=== PATIENT | male | born 1980 | race Caucasian/White ===

== ENCOUNTER 2021-01-21 20:57 | Emergency (ER) | payer OTHER ==
[2021-01-21] MEDS ORDERED: Ketorolac 15 MG/ML SDV IM ONE (21:29)
--- NOTE | 2021-01-21 22:17 | EDM.PDOC ---
ED [facility] GENERAL MEDICAL PROBLEM - General Chief Complaint: Abdominal Pain Stated Complaint: STOMACH PAIN Time Seen by Provider: 01/21/21 21:40 Source of Information: Reports: Patient History Limitations: Reports: No Limitations - History of Present Illness INITIAL COMMENTS - FREE TEXT/NARRATIVE: Patient is a 40-year-old male with no significant past medical history presenting with a chief complaint of abdominal pain. Patient reports that abdominal pain started about 3 hours ago. Patient reports the pain is in the left lower quadrant of the abdomen with radiation to the back. Patient reports patient is unrelieved by any sort of position changes. He denies any associated fevers, chills, nausea, vomiting, diarrhea. Patient's last bowel movement was today. He has no prior history of abdominal surgeries or kidney stones. Patient did take Pepto-Bismol prior to arrival with no relief. Abdomen Pain Score (Numeric/FACES): 10 - Related Data Allergies Allergy/AdvReac Type Severity Reaction Status Date / Time amoxicillin Allergy Hives Verified 08/21/14 19:32 Home Meds: Home Meds Montelukast [Singulair] 10 mg PO DAILY 08/21/14 [History] Sennosides/Docusate Sodium [Senna-Docusate Sodium Tablet] 1 each PO BID #20 tablet 01/21/21 [Rx] Past Medical History - Infectious Disease History Infectious Disease History: Reports: Shingles - Past Surgical History Other HEENT Surgeries/Procedures: sinus surgery Social & Family History - Family History Family Medical History: No Pertinent Family History - Tobacco Use Tobacco Use Status *Q: Current Every Day Tobacco User Years of Tobacco use: 20 Packs/Tins Daily: 0.2 - Caffeine Use Caffeine Use: Reports: Coffee - Recreational Drug Use Recreational Drug Use: No ED ROS GENERAL - Review of Systems Review Of Systems: See Below Free Text/Narrative/Comment: In addition to that documented in the HPI above, the additional ROS was obtained: Constitutional: Denies fevers or chills Eyes: Denies vision changes ENMT: Denies sore throat CV: Denies chest pain Resp: Denies SOB GI: Denies vomiting or diarrhea : Denies painful urination MSK: Denies recent trauma Skin: Denies new rashes Neuro: Denies new numbness or tingling or weakness Endocrine: Denies unexpected weight loss Heme: Denies bleeding disorders ED EXAM, GI/ABD - Physical Exam Exam: See Below Text/Narrative:: I have reviewed the triage vital signs Const: Well nourished, well developed, appears stated age Eyes: Pupils Equal and reactive to light bilaterally, no conjunctival injection HENT: No signs of trauma or swelling, Neck supple without meningismus CV: Regular Rate Rhythm, Warm, well-perfused extremities RESP: Unlabored respiratory effort GI: soft, non-tender, non-distended, no masses MSK: No gross deformities appreciated Skin: Warm, dry. 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 Sensation and motor function of extremities grossly intact. Psych: Appropriate mood and affect. Course - Vital Signs Last Recorded V/S: Last Vital Signs Temp 36.1 C 01/21/21 23:35 Pulse 73 01/21/21 23:35 Resp 18 01/21/21 23:35 BP 136/93 H 01/21/21 23:35 Pulse Ox 97 01/21/21 23:35 - Orders/Labs/Meds Orders: Active Orders 24 hr Category Date Time Status Abdomen Pelvis wo Cont [CT] Stat Exams 01/21/21 21:29 Taken Labs: Laboratory Tests 01/21/21 01/21/21 01/21/21 Range/Units 21:21 21:21 22:40 WBC 10.73 H (4.23-9.07) K/mm3 RBC 5.74 (4.63-6.08) M/mm3 Hgb 16.7 (13.7-17.5) gm/dl Hct 48.0 (40.1-51.0) % MCV 83.6 (79.0-92.2) fl MCH 29.1 (25.7-32.2) pg MCHC 34.8 (32.2-35.5) g/dl RDW Std Deviation 40.4 (35.1-43.9) fL Plt Count 255 (163-337) K/mm3 MPV 10.8 (9.4-12.3) fl Neut % (Auto) 53.8 (34.0-67.9) % Lymph % (Auto) 31.9 (21.8-53.1) % Ida % (Auto) 9.7 (5.3-12.2) % Eos % (Auto) 3.3 (0.8-7.0) Baso % (Auto) 0.7 (0.1-1.2) % Neut # (Auto) 5.79 H (1.78-5.38) K/mm3 Lymph # (Auto) 3.42 (1.32-3.57) K/mm3 Ida # (Auto) 1.04 H (0.30-0.82) K/mm3 Eos # (Auto) 0.35 (0.04-0.54) K/mm3 Baso # (Auto) 0.07 (0.01-0.08) K/mm3 Sodium 145 (136-145) mEq/L Potassium 4.1 (3.5-5.1) mEq/L Chloride 108 H (98-107) mEq/L Carbon Dioxide 27 (21-32) mEq/L Anion Gap 14.1 (5-15) BUN 20 H (7-18) mg/dL Creatinine 1.2 (0.7-1.3) mg/dL Est Cr Clr Drug Dosing 89.81 mL/min Estimated GFR (MDRD) > 60 (>60) mL/min BUN/Creatinine Ratio 16.7 (14-18) Glucose 130 H (70-99) mg/dL Calcium 9.3 (8.5-10.1) mg/dL Total Bilirubin 0.3 (0.2-1.0) mg/dL AST 18 (15-37) U/L ALT 43 (16-63) U/L Alkaline Phosphatase 52 (46-116) U/L Total Protein 6.9 (6.4-8.2) g/dl Albumin 4.1 (3.4-5.0) g/dl Globulin 2.8 gm/dL Albumin/Globulin Ratio 1.5 (1-2) Lipase 84 (73-393) U/L Urine Color Yellow (Yellow) Urine Appearance Clear (Clear) Urine pH 5.5 (5.0-8.0) Ur Specific [place] > or = 1.030 (1.005-1.030) Urine Protein Negative (Negative) Urine Glucose (UA) Negative (Negative) Urine Ketones Negative (Negative) Urine Occult Blood Trace-lysed H (Negative) Urine Nitrite Negative (Negative) Urine Bilirubin Negative (Negative) Urine Urobilinogen 0.2 (0.2-1.0) Ur Leukocyte Esterase Negative (Negative) Urine RBC 0-5 (0-5) /hpf Urine WBC 0-5 (0-5) /hpf Ur Epithelial Cells Not seen (0-5) /hpf Urine Bacteria Few (FEW) /hpf Urine Mucus Few (FEW) /hpf Meds: Medications Discontinued Medications Generic Name Dose Route Start Last Admin Trade Name Jatin PRN Reason Stop Dose Admin Ketorolac Tromethamine 15 mg 01/21/21 21:29 01/21/21 22:09 Ketorolac 15 Mg/Ml Sdv IM 01/21/21 21:30 15 mg ONETIME ONE Administration Ondansetron HCl 4 mg 01/21/21 23:32 01/21/21 23:37 Ondansetron 4 Mg Tab.Dis PO 01/21/21 23:33 4 mg ONETIME ONE Administration Oxycodone/Acetaminophen 1 tab 01/21/21 23:17 01/21/21 23:23 Acetaminophen/Oxycodone 325-5 Mg Tab PO 01/21/21 23:18 1 tab ONETIME ONE Administration Departure - Departure Time of Disposition: 23:17 Disposition: Home, Self-Care 01 Clinical Impression: Flank pain, Hydronephrosis of left kidney - Discharge Information Prescriptions: Sennosides/Docusate Sodium [Senna-Docusate Sodium Tablet] 1 each PO BID #20 tablet Instructions: Hydronephrosis, Flank Pain, Adult Referrals: Delmi Kee PA-C [Primary Care Provider] - Forms: ED Department Discharge Additional Instructions: Please follow-up with urology in [facility] within the next 1 to [address] weeks[address] You can see Dr. Nguyen or the first available urologist. You need further studies done of your kidney. 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 Generally, this is benign however it should be studied with MRI to further evaluate and see if a surgical consultation is necessary. Take pain medication as prescribed. I would recommend use of stool softeners as well. Sepsis Event Note (ED) - Evaluation Sepsis Screening Result: No Definite Risk - Focused Exam Vital Signs: Vital Signs Temp Pulse Resp BP Pulse Ox 01/21/21 23:35 36.1 C 73 18 136/93 H 97 01/21/21 21:10 36.0 C L 72 18 148/98 H 98 - My Orders Last 24 Hours: My Active Orders 01/21/21 21:29 Abdomen Pelvis wo Cont [CT] Stat - Assessment/Plan Last 24 Hours: My Active Orders 01/21/21 21:29 Abdomen Pelvis wo Cont [CT] Stat Assessment:: Patient is 40-year-old male presenting to the emergency room with left flank and left lower quadrant abdominal pain. Unremarkable ER course. Differential diagnosis considered for this patient include bowel obstruction, diverticulitis, kidney stone. Laboratory studies and CT scan performed. Laboratory studies did not demonstrate any significant abnormality. Slight elevation of white blood cell count and trace blood in the urine. However, his CT scan was significant for findings of left kidney severe hydronephrosis with findings of UPJ obstruction. There is no evidence of kidney stone. Also findings of fatty lesion within the muscle consistent with possible lipoma. At this point, I did consult urology at [facility]. I spoke with Dr Nguyen, who did not believe these findings seemed emergent. He does recommend further evaluation in their clinic. I did instruct the patient that he should follow-up as an outpatient. Otherwise, patient discharged with pain medication and stool softener. Return precautions given as usual. Patient agrees with plan of care.
[2021-01-21] MEDS ORDERED: Acetaminophen/oxyCODONE 325-5 MG Tab PO ONE (23:17)
[2021-01-21] MEDS ORDERED: Ondansetron 4 MG Tab.DIS PO ONE (23:32)
[2021-01-21 23:43] VITALS: BP 136/93; PULSE 73
--- NOTE | 2021-01-22 06:36 | CT ---
CT abdomen and pelvis Technique: Multiple axial sections were obtained from above the dome of the diaphragm inferiorly through the pubic symphysis. Intravenous and oral contrast were not utilized. Reconstructed coronal and sagittal images were obtained. Comparison: No prior abdominal or pelvic imaging is available. Findings: Left kidney shows prominent hydronephrosis. Calyces are dilated as well as the renal pelvis. These findings are compatible with UPJ obstruction. This is most likely due to a stricture at the UPJ. Left ureter shows no dilatation. No renal calculi are seen. No bladder calculi are seen. Visualized lung bases show nothing acute. Visualized portions of the liver show no focal abnormality. Spleen size is normal. Adrenal glands show no nodule. Pancreas appears without discrete abnormality. Gallbladder contains no calcified gallstones. Intramuscular lipoma is seen within the right lateral side involving the abdominal wall. This measures about around 4.1 cm and is felt to be incidental. Appendix is normal in size. No pelvic mass or adenopathy is seen. No free fluid or inflammatory change is seen. Bone window settings were reviewed. Very minimal degenerative change is seen. No acute osseous abnormality is appreciated. Impression: 1. Left kidney shows a severely dilated collecting system and left renal pelvis. 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 2. No renal calculi or ureteral stone is seen on either side. 3. 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 4. Minimal scattered degenerative change within the spine is noted. Diagnostic code #3 I mostly agree with preliminary report from [facility] finalized on 01/21/21, 11:35 PM [employer], code 2
== END 2021-01-21 23:45 | disposition home or self-care (01) ==
LOC: JD.ED 20:57
DX: N13.30 Unspecified hydronephrosis (principal); Z88.0 Allergy status to penicillin; Z72.0 Tobacco use
CPT/HCPCS: 36415; 74176; 80053; 81001; 83690; 85025; 96372; 99284; A9270; J1885